=== PATIENT | female | born 1945 | race Two or more races ===

== ENCOUNTER 2019-07-12 21:45 | Emergency (ER) | payer MEDICARE ==
[~2019-07-12] VITALS: Ht 160 cm; Wt 108.9 kg
[2019-07-12 22:30] VITALS: BP 112/69
[2019-07-12] MEDS ORDERED: Ketorolac 30mg Inj IV ONE (22:30)
--- NOTE | 2019-07-12 22:46 | NUR ---
ED Nurse Note: pt presents to ED c/o L sided CP that she noticed yesterday. pt states that her L hand and wrist are more red, swollen and painful than her R hand. pt states she is unable to move her hand/wrist or fingers of her L hand. pt denies any injury or trauma to the area
--- NOTE | 2019-07-12 22:48 | Emergency Room Report ---
History of Present Illness General Chief Complaint: Chest Pain Source: Patient Present Illness HPI Is a 73-year-old female with history of diabetes. She is right-hand dominant. She presents with chief complaint of left wrist and forearm pain. She woke up with swelling and pain to her wrist and distal forearm area. Worse with movement. Better with rest. Pain is 9 out of 10. She became anxious and said that she has some slight chest pain because of it. No trauma. No fever or chills. Allergies: Coded Allergies: SULFUR DIOXIDE (Verified Allergy, Unknown, 07/12/19) Patient History Past Medical History: see triage record, old chart reviewed, DM Past Surgical History: other Pertinent Family History: none Social History: Denies: smoking Now: No Immunizations: other Reviewed Nursing Documentation: PMH: Agreed; PSxH: Agreed Nursing Documentation-PMH Hx Diabetes: Yes Review of Systems Eye: Denies: eye pain, blurred vision ENT: Denies: ear pain, nose congestion, throat swelling Respiratory: Denies: cough, shortness of breath Cardiovascular: Reports: chest pain; Denies: palpitations Gastrointestinal: Denies: abdominal pain, diarrhea, nausea, vomiting Musculoskeletal: Reports: joint pain, joint swelling; Denies: back pain Skin: Denies: rash Neurological: Denies: headache, numbness Endocrine: Denies: increased thirst, increased urine Hematologic/Lymphatic: Denies: easy bruising All Other Systems: negative except mentioned in HPI Physical Exam Vital Signs Date Time Temp Pulse Resp B/P (MAP) Pulse Ox O2 Delivery O2 Flow Rate FiO2 07/12/19 21:58 99.1 93 19 112/69 (83) 93 Room Air Vitals unremarkable Sp02 EP Interpretation: reviewed, normal General Appearance: well appearing, no apparent distress, alert, obese Head: normocephalic, atraumatic Eyes: bilateral eye PERRL, bilateral eye EOMI ENT: hearing grossly normal, normal pharynx Neck: full range of motion, supple, no meningismus Respiratory: chest non-tender, lungs clear, normal breath sounds Cardiovascular #1: regular rate, rhythm, no murmur Gastrointestinal: normal bowel sounds, non tender, no mass, no organomegaly, no bruit, non-distended Musculoskeletal: back normal, normal range of motion, gait/station normal, other - Left wrist: There is some edema and tightness to the distal forearm and wrist area. Slightly warm to the touch. Tender to range of motion. Pulse normal. Upper arm normal. Psychiatric: anxious Procedures Splinting Splinting : Consent: Verbal Location: Left wrist Pre-Made Type: velcro Splint: volar Pre-Proc Neuro Vasc Exam: normal Post-Proc Neuro Vasc Exam: normal Patient Tolerated: Well Complications: None Medical Decision Making Diagnostic Impression: Primary Impression: Arthralgia of wrist, left Additional Impression: Chest pain Qualified Codes: R07.9 - Chest pain, unspecified ER Course Patient presents with left wrist pain. Laboratory markers slightly elevated. No evidence of any septic joint, fracture, dislocation. Chest pain is atypical nature. No evidence of ACS, PE, dissection. EKG Diagnostic Results Rate: normal Rhythm: NSR ST Segments: no acute changes Rhythm Strip Diag. Results EP Interpretation: yes Rate: 85 Rhythm: NSR, no PVC's, no ectopy Chest X-Ray Diagnostic Results Chest X-Ray Diagnostic Results : Chest X-Ray Ordered: Yes # of Views/Limited/Complete: 1 View Indication: Chest Pain EP Interpretation: Yes Interpretation: no consolidation, no effusion, no pneumothorax, no acute cardiopulmonary disease Impression: No acute disease Electronically Signed by: Azeem Quevedo MD Other X-Ray Diagnostic Results Other X-Ray Diagnostic Results : X-Ray ordered: Left wrist xrays # of Views/Limited Vs Complete: 3 View Indication: Pain EP Interpretation: Yes Interpretation: no dislocation, no soft tissue swelling, no fractures Impression: No acute disease Electronically Signed by: Azeem Quevedo MD Last Vital Signs Date Time Temp Pulse Resp B/P (MAP) Pulse Ox O2 Delivery O2 Flow Rate FiO2 07/12/19 21:58 99.1 93 19 112/69 (83) 93 Room Air Status: improved Disposition: HOME, SELF-CARE Condition: Stable Scripts Tramadol Hcl* (ULTRAM*) 50 Mg Tablet 50 MG ORAL Q6H PRN for For Pain, #10 TAB 0 Refills Prov: Azeem Quevedo MD 07/13/19 Ibuprofen* (MOTRIN*) 600 Mg Tablet 600 MG ORAL THREE TIMES A DAY, #30 TAB 0 Refills Prov: Azeem Quevedo MD 07/13/19 Additional Instructions: Elevate arm. Follow-up with your doctor in 7 days. Return if symptoms worsen. Azeem Quevedo MD Jul 12, 2019 22:48
[2019-07-12 22:52] LABS: BASOPHILS % (AUTO) 0.5 % (0.0-2.0); EOSINOPHILS % (AUTO) 1.2 % (0.0-3.0); HEMATOCRIT 38.7 % (37.0-47.0); HEMOGLOBIN 13.4 G/DL (12.0-16.0); LYMPHOCYTES % (AUTO) 18.3 % (20.0-45.0); MEAN CORPUSCULAR VOLUME 84 FL (80-99); MONOCYTES % (AUTO) 11.5 % (1.0-10.0); NEUTROPHILS % (AUTO) 68.4 % (45.0-75.0); PLATELET COUNT 234 K/UL (150-450); RED BLOOD COUNT 4.59 M/UL (4.20-5.40); WHITE BLOOD COUNT 9.5 K/UL (4.8-10.8)
[2019-07-12 23:42] LABS: ANION GAP 6 mmol/L (5-15); BLOOD UREA NITROGEN 26 mg/dL (7-18); CALCIUM 9.5 MG/DL (8.5-10.1); CARBON DIOXIDE 31 MMOL/L (21-32); CHLORIDE 102 MMOL/L (98-107); CREATININE 1.3 MG/DL (0.55-1.30); POTASSIUM 4.2 MMOL/L (3.5-5.1); SODIUM 139 MMOL/L (136-145)
[2019-07-12 23:53] LABS: ALANINE AMINOTRANSFERASE 19 U/L (12-78); ALBUMIN 3.8 G/DL (3.4-5.0); ALBUMIN/GLOBULIN RATIO 1.1 (1.0-2.7); ALKALINE PHOSPHATASE 100 U/L (46-116); ASPARTATE AMINO TRANSFERASE 12 U/L (15-37)
[2019-07-13] MEDS ORDERED: IBUPROFEN600 MG ORAL (00:17)
[2019-07-13] MEDS ORDERED: TRAMADOL HCL50 MG ORAL (00:17)
[2019-07-13 00:20] VITALS: BP 112/69
--- NOTE | 2019-07-13 00:20 | NUR ---
ER DISCHARGE NOTE: Patient's L wrist and hand were placed in splint per ERMD orders. pt is cleared to be discharged per ERMD, pt is aox4, on room air, with stable vital signs. pt was given dc and prescription instructions, pt was able to verbalize understanding, pt id band and iv site removed without complications. pt is able to ambulate with steady gait. pt took all belongings.
--- NOTE | 2019-07-13 12:43 | Diagnostic Imaging Report ---
Indication: Left wrist pain Findings: 3 views of the left wrist were obtained. No acute fractures, malalignment, erosions or periostitis are identified. Soft tissues are unremarkable. Impression: No acute findings.
--- NOTE | 2019-07-13 12:45 | Diagnostic Imaging Report ---
Indication: Dyspnea Comparison: 05/30/2009 A single view chest radiograph was obtained. Findings: No definite infiltrate or pulmonary vascular congestion identified. The heart is enlarged. The aorta is mildly enlarged consistent with atherosclerotic vascular disease. The bones are osteopenic. Impression: No acute disease
== END 2019-07-13 00:20 | disposition home or self-care (01) ==
LOC: EMR 22:52
DX: M25.532 Pain in left wrist (principal); R07.9 Chest pain, unspecified; E11.9 Type 2 diabetes mellitus without complications; E66.9 Obesity, unspecified; Z68.41 Body mass index [BMI] 40.0-44.9, adult
CPT/HCPCS: 29125; 36415; 71045; 73110; 80053; 84484; 84550; 85025; 85651; 86140; 93005; 96374; 99284; J1885